=== PATIENT | female | born 1980 | race Two or more races ===

== ENCOUNTER 2016-08-18 07:30 | Day surgery (SDC) | payer OTHER ==
[~2016-08-18] VITALS: Ht 165.1 cm; Wt 50.8 kg
[2016-08-18 08:19] VITALS: BP 112/60
[2016-08-18 13:37] VITALS: BP 95/60
== END 2016-08-18 11:30 | disposition home or self-care (01) ==
LOC: DS 07:30 → GI 09:30 → OR 09:30 → DS 11:30
PROVIDERS: Internal Medicine Gastroenterology
PROC: 0W3P8ZZ Control Bleeding in Gastrointestinal Tract, Via Natural or Artificial Opening Endoscopic (ICD-10-PCS; principal; 2016-08-18 09:30)
PROC: 0DB58ZX Excision of Esophagus, Via Natural or Artificial Opening Endoscopic, Diagnostic (ICD-10-PCS; 2016-08-18 09:30)
PROC: 0DB68ZX Excision of Stomach, Via Natural or Artificial Opening Endoscopic, Diagnostic (ICD-10-PCS; 2016-08-18 09:30)
DX: K92.2 Gastrointestinal hemorrhage, unspecified (principal); K31.7 Polyp of stomach and duodenum; R12 Heartburn; K44.9 Diaphragmatic hernia without obstruction or gangrene
CPT/HCPCS: 43235; J1200; J1610; J2250; J2310; J3010; J3490